=== PATIENT | female | born 1940 | race Caucasian/White ===

== ENCOUNTER 2016-05-29 13:10 | Inpatient (IN) | payer MEDICARE, OTHER ==
[~2016-05-29] VITALS: Ht 160 cm; Wt 104.4 kg
[~2016-05-29 13:10] MED LIST: AMLO5TAB2 PO; ASCO-294 PO; ASPI-973 PO; CHOL10008 PO; CYA1000I IM; DOXA8TAB73 PO; GABA300C PO; HYDR-3797 PO; HYDR-3940 PO; HYDR25TA4 PO; INSU100I13 SUBQ; LATA2.5D6 BOTH_EYES; OXYC5TAB72 PO; PRD5T PO; PRE10 PO; PRED-508 PO; PRIM50TA PO; PROP120C2 PO; TELM80TA PO
[2016-05-29 13:12] VITALS: BP 130/56; PULSE 55; RESP 16; O2SAT 100
[2016-05-29 13:38] LABS: BASOPHILS % (AUTO) 0.4 % (0-3); EOSINOPHILS % (AUTO) 2.3 % (0-5); MONOCYTES % (AUTO) 8.5 % (4-12); Mean Corpuscular Hemoglobin 27.5 pg (27.0-35.0); Mean Corpuscular Volume 84.4 fL (81-100); NEUTROPHILS % (AUTO) 58.9 % (40-74); Platelet Count 167 bil/L (150-400)
[2016-05-29 13:52] VITALS: BP 114/53; PULSE 53; RESP 17; O2SAT 98
[2016-05-29 14:06] LABS: TROPONIN T < 0.010 ug/L (0.0-0.011)
[2016-05-29 14:11] LABS: Magnesium 2.1 mg/dL (1.6-2.6)
--- NOTE | 2016-05-29 14:17 | ED.REPORT ---
HPI-General Illness Date of Service May 29, 2016 ED Provider: Van Phan DO The patient is a 75 year old female with history of hypertension, diabetes mellitus, renal insufficiency, who was sent to the emergency department from urgent care. She went to have a B12 shot this morning and her blood pressure was found to be low. The patient was sent to urgent care, her blood pressure had improved but was very tearful and upset so she was subsequently sent here. She presents to the emergency department tearful and complaining of generally not feeling well. She complains of chronic neck, arm and shoulder pain. The patient has been crying more over the last month. Her family states that she is feeling hopeless and depressed. The patient dealt with depression many years ago. She has been sleeping well. She denies abdominal pain, vomiting, diarrhea, dysuria, urinary frequency/urgency changes, chest pain or shortness of breath. Nursing Notes Stated Complaint: LOW BLOOD PRESSURE Chief Complaint: General Complaint Nursing Notes Reviewed: Yes Allergies: Coded Allergies: amoxicillin (Verified Allergy, Severe, Hives,HEADACHE, 05/29/16) citalopram (Verified Allergy, Severe, Hallucinations, 05/29/16) nifedipine (Verified Allergy, Severe, rash, 05/29/16) lisinopril (Verified Adverse Reaction, Severe, cough, 05/29/16) pioglitazone (Verified Adverse Reaction, Severe, leg swelling,WEIGHT GAIN , 05/29/16) pravastatin (Verified Adverse Reaction, Severe, myalgias, 05/29/16) saxagliptin (Verified Adverse Reaction, Severe, Headache, 05/29/16) simvastatin (Verified Adverse Reaction, Severe, weakness, 05/29/16) Scheduled Amlodipine (Amlodipine) 2.5 Mg Tablet 2.5 MG PO DAILY Antiox#10/Om3/Dha/Epa/Lut/Zeax (I-Caps with Lutein-Maybell 3 Sfg) 1 Each Capsule 1 EACH PO DAILY Aspirin (Aspirin) 81 Mg Tablet 81 MG PO DAILY Chlorthalidone (Chlorthalidone) 25 Mg Tablet 25 MG PO DAILY Cholecalciferol (Vitamin D3) (Vitamin D3) 1,000 Unit Tab.chew 2,000 UNIT PO DAILY Cranberry Fruit (Cranberry) 400 Mg Tablet 400 MG PO DAILY Cyanocobalamin (Cyanocobalamin Injection) 1,000 Mcg/1 Ml Vial 1,000 MCG IM Monthly Doxazosin Mesylate (Doxazosin Mesylate) 8 Mg Tablet 8 MG PO BID Hydralazine (Hydralazine) 50 Mg Tablet 50 MG PO BID Insulin Glargine (Lantus U100 Solostar Insulin Pen) 100 Unit/1 Ml Insuln.pen 40 UNITS SUBQ HS Latanoprost (Latanoprost) 2.5 Ml Drops 1 GTT BOTH_EYES HS Primidone (Primidone) 250 Mg Tablet 250 MG PO BID Propranolol ER (Propranolol ER) 120 Mg Cap.sa.24h 120 MG PO BID Telmisartan (Micardis) 80 Mg Tablet 80 MG PO DAILY General Time Seen by MD: 14:09 Chief Complaint Other (low blood pressure) Hx Obtained From: Patient, Other family... Arrived By: Walk-in Sudden in Onset?: No Onset Occurred: More than a week ago... Symptom Duration: Since onset Location: : Arm left: Arm right: Neck: Shoulder left: Shoulder right Quality: Same as prior, Painful Severity: Current: Mild Severity: Maximum: Moderate Recent Healthcare: No recent hospitalization, Recent doctor visit Similar Sx Previous: Yes Past Medical History Past Medical History Pernicious anemia Reports: Diabetes mellitus, Hypertension Reports: Glaucoma, Kidney disease, Morbid Obesity, Renal insufficiency Past Surgical History Right knee arthroplasty 11/25/2015 Left rotator cuff repair Right ankle surgery Cholecystectomy Total hysterectomy 30 years ago. Colonoscopy Family History Noncontributory Smoking History Never Smoker Social History Alcohol Use: Denies alcohol use Drug Use: Denies drug use Other Social History: Good social support, , Local resident Ambulatory Status Independent Review of Systems +hypotension, crying Full Review of Systems Constitutional: Reports: Fatigue, Malaise Musculoskeletal: Reports: Extremity pain, Joint pain, Neck pain Psychiatric: Reports: Depression, Denies: Insomnia Complete sys rev & neg: except as marked. Physical Exam Vital Signs Vital Signs Date Time Temp Pulse Resp B/P Pulse Ox O2 Delivery O2 Flow Rate FiO2 05/29/16 16:39 77 12 147/82 98 Room Air 05/29/16 13:52 53 17 114/53 98 Room Air 05/29/16 13:12 35.6 55 16 130/56 100 Room Air Initial VS: Reviewed Head / Eyes: Atraumatic, Normocephalic, PERRL Neck: Supple, Non-tender, Full range of motion Respiratory: Breath sounds normal, Clear to auscultation, No respiratory distress Cardiovascular: Regular rate & rhythm, Heart sounds normal, Intact distal pulses Abdomen / GI: Soft, Non-tender, No guarding, No rebound, No distention Extremities: Vascular intact, Neuro intact, No swelling, No tenderness Skin: Warm, Dry, No cyanosis Neurologic: Alert, Oriented, Nonfocal Psychiatric: Mood/affect normal, Behavior normal, Normal thought content General/Constitutional: Awake, Alert Behavior: Positive: Tearful Appearance / Presentation: Positive: Obese ENT: Airway patent Mouth: Positive: Mucous membranes dry Interpretation & Diagnostics Lab Results Interpretation Result Diagram: 05/29/16 1332 05/29/16 1332 Test 05/29/16 13:32 05/29/16 16:25 White Blood Count 5.2th/mm3 (3.8-10.1) Red Blood Count 4.18mil/mm3 (3.90-5.20) Hemoglobin 11.5g/dL (12.0-15.6) Hematocrit 35.3% (35.0-46.0) Mean Corpuscular Volume 84.4fL (81-100) Mean Corpuscular Hemoglobin 27.5pg (27.0-35.0) Mean Corpuscular Hemoglobin Concent 32.6% (32.0-37.0) Red Cell Distribution Width 14.8% (12.3-15.4) Platelet Count 167bil/L (150-400) Neutrophils (%) (Auto) 58.9% (40-74) Lymphocytes (%) (Auto) 29.7% (14-46) Monocytes (%) (Auto) 8.5% (4-12) Eosinophils (%) (Auto) 2.3% (0-5) Basophils (%) (Auto) 0.4% (0-3) Sodium Level 139mEq/L (134-144) Potassium Level 2.9mEq/L (3.5-5.2) Chloride Level 94mEq/L (97-108) Carbon Dioxide Level 26mmol/L (18-29) Blood Urea Nitrogen 44mg/dL (8-27) Creatinine 1.83mg/dL (0.57-1.00) Estimat Glomerular Filtration Rate 38mL/min (>59) Glucose Level 144mg/dL (60-99) Calcium Level 10.2mg/dL (8.5-10.1) Magnesium Level 2.1mg/dL (1.6-2.6) Total Bilirubin 0.3mg/dL (0.0-1.2) Aspartate Amino Transf (AST/SGOT) 70U/L (0-50) Alanine Aminotransferase (ALT/SGPT) 60U/L (0-32) Alkaline Phosphatase 243U/L (25-165) Troponin T < 0.010ug/L (0.0-0.011) Total Protein 7.4g/dL (6.4-8.4) Albumin 4.2g/dL (3.4-5.0) Urine Color Yellow (YELLOW) Urine Appearance Clear (CLEAR,HAZY) Urine pH 6.0 (5.0-8.0) Urine Specific [place] <1.005 (1.003-1.035) Urine Protein Negativemg/dL (NEG,TRACE) Urine Glucose (UA) Negativemg/dL (NEGATIVE) Urine Ketones Negativemg/dL (NEGATIVE) Urine Occult Blood Negative (NEGATIVE) Urine Nitrite Negative (NEGATIVE) Urine Bilirubin Negative (NEGATIVE) Urine Urobilinogen Normalmg/dL (NORMAL) Urine Leukocyte Esterase Small (NEGATIVE) Urine RBC 0-2/hpf (0-2) Urine WBC 6-10/hpf (0-5) Urine Epithelial Cells Moderate/hpf (NONE-MOD) Urine Crystals None seen (NONE SEEN) Urine Bacteria Moderate/hpf (NONE-FEW) Urine Hyaline Casts 5/20/lpf (NONE) Urine Granular Casts None seen (NONE SEEN) Urine Waxy Casts None seen (NONE SEEN) Urine Red Blood Cell Casts None seen (NONE SEEN) Urine White Blood Cell Casts None seen (NONE SEEN) Urine Mucus None seen (None Seen) Urine Trichomonas None seen (NONE SEEN) Urine Yeast None (NONE SEEN) Urinalysis Comment None Urine Culture Reflexed Indicated ECG Interpretation ECG Interpretation: Sinus rhythm Abnormal R wave progression Time: 14:01 Interpreted by: ED physician Re-Eval/Medical Decision Med Decision/Clinical Course Hypotension this morning at the doctor's office and acute kidney injury. Creatinine seems to have triple from baseline. Patient will be admitted. Source of Hx: Old records, Family Time of Eval: 15:40 Re-Evaluation/Progress Note: Rechecked the patient. Discussed labs, diagnosis, and plan for admission. All questions were addressed. Consultation : Referral / Consult Name: Kishore Kearney MD Consulted With: Hospitalist Call Returned at: 16:07 [place]: Will see patient, Agrees with eval, Agrees with plan, Accepts admit Counseled Regarding: Diagnosis, Lab results, Need for admission Discharge & Departure Primary Impression: Dehydration Additional Impression: Acute kidney injury Disposition: ADMITTED TO HOSPITAL Discharge Condition All VS Reviewed: Yes Condition: Stable Referrals: Samantha Henderson (PCP) Scribe Attestation Portions of this note were transcribed by Phoebe Rodriguez. I, Dr. Phan personally performed the history, physical exam and medical decision-making; I reviewed and confirmed the accuracy of the information in the transcribed note. Signed by: Joao Pride, 05/29/2016 at 1615. copies to: Samantha Henderson Timothy S DO May 29, 2016 14:17 Phoebe Rodriguez May 29, 2016 14:26
[2016-05-29] MEDS ORDERED: 0.9% Sodium Chloride 1,000 ML IV ONE (14:30)
[2016-05-29] MEDS ORDERED: Potassium Chloride 20 mEq SR Tablet PO ONE (14:30)
[2016-05-29] MEDS ORDERED: AMLO2.5T PO (16:35)
[2016-05-29] MEDS ORDERED: HYG25 PO (16:38)
[2016-05-29] MEDS ORDERED: ANTI1CAP2 PO (16:38)
[2016-05-29] MEDS ORDERED: PRIM250T PO (16:38)
[2016-05-29] MEDS ORDERED: CRAN400T4 PO (16:38)
[2016-05-29 16:39] VITALS: BP 147/82; PULSE 77; RESP 12; O2SAT 98
[2016-05-29 17:01] LABS: APPEARANCE,URINE CLEAR (CLEAR,HAZY); COLOR,URINE YELLOW (YELLOW)
[2016-05-29 17:02] LABS: OCCULT BLOOD,URINE NEGATIVE (NEGATIVE); UROBILINOGEN,URINE NORMAL (NORMAL)
[2016-05-29 17:17] VITALS: BP 148/60; PULSE 52; RESP 20; O2SAT 99
[2016-05-29 17:37] VITALS: PULSE 53
[2016-05-29] MEDS: D5 0.45% NaCl + KCl 20 mEq/L 1,000 ML IV SCH (17:55)
[2016-05-29 20:20] VITALS: BP 128/72; PULSE 58; RESP 20; O2SAT 98
--- NOTE | 2016-05-29 20:58 | DRSVH ---
PROCEDURE: X-RAY CHEST ONE VIEW, PORTABLE ([id number]) INDICATIONS: fatigue TECHNIQUE: One view of the chest was acquired. COMPARISON: [facility], CR, XR CHEST 2VW, 11/27/2015, 12:49. FINDINGS: Surgical changes and devices: None. Lungs and pleura: No pleural effusions or pneumothorax. Lungs are clear. Mediastinum: Mediastinal contours appear normal. Heart size is normal. Bones and chest wall: No suspicious bony lesions. Overlying soft tissues appear unremarkable. IMPRESSION: No acute cardiopulmonary disease. Dictated by: Segundo Ching M.D. on 05/29/2016 at 20:52 Approved by: Segundo Ching M.D. on 05/29/2016 at 20:56
[2016-05-29 21:04] LABS: TROPONIN T 0.01 ug/L (0.0-0.011)
[2016-05-29] MEDS: cefTRIAXone Inj 1,000 MG in Dextrose 5% Minibag Plus 50 ML IV SCH (21:59)
[2016-05-29] MEDS: Insulin GLARgine 100 Unit/mL Syringe SUBQ SCH (22:01)
[2016-05-30] VITALS (7 sets, daily range): BP systolic 107–127; BP diastolic 56–74; PULSE 52–66; RESP 18–20; O2SAT 97–98
[2016-05-30] MEDS ORDERED: Potassium Chloride Inj 20 MEQ in Dextrose 5% 250 ML IV ONE (00:15)
--- NOTE | 2016-05-30 00:23 | PCM.HPMED ---
Subjective Date of Service May 29, 2016 Primary Provider: Admitting Physician: Kishore Kearney MD Primary Care Physician: Samantha Henderson Attending Physician: Kishore Kearney MD History of Present Illness: cc: low BP HISTORY was OBTAINED FROM PATIENT / [employer] NOTES History of present illness 75-year-old female, noted to have low blood pressures at primary care office 58/ 40, noted to have low blood pressures at urgent care 98/48 then finally sent to the emergency department after 1L NS. She had been receiving vitamin B12 injections at primary care office. Family indicates that she has been depressed for at least 2 months and staying in her room. In the ER she has been crying throughout. she indicated possibly lightheadness today. No abdominal pains diarrhea no shortness of breath. patient indicates tolerating diet, no vomiting. poor appetite. She feels sad when crying, crying is not involuntary motor reaction. new diffuse upper extremity weakness. no changes in medications. wt loss 20lb within this year. In the ER heart rate 53, 114/53 mm, normal saline and potassium chloride 40 last hospitalized 1 year ago. Review of Systems - none of the following - F/C/sick contact / [facility] / sob / cough / cp / acid reflux / n/v/diarrhea / bleeding/bruising / leg swelling / change in voiding / yeast infections / rash ambulates neck pain is chronic left ear ache feels better w/ pressure FAMILY HX sister colon cancer SOCIAL HX never smoker no MEDICATIONS Scheduled Amlodipine (Amlodipine) 5 Mg Tablet 5 MG PO DAILY Ascorbate Calcium (Vitamin C) 500 Mg Tablet 500 MG PO QPM Aspirin (Aspirin) 81 Mg Tablet 81 MG PO DAILY Cholecalciferol (Vitamin D3) (Vitamin D3) 1,000 Unit Tab.chew 2,000 UNIT PO DAILY Cyanocobalamin (Cyanocobalamin Injection) 1,000 Mcg/1 Ml Vial 1,000 MCG IM Monthly Doxazosin Mesylate (Doxazosin Mesylate) 8 Mg Tablet 8 MG PO BID Gabapentin (Neurontin) 300 Mg Capsule 300 MG PO BID Hydralazine (Hydralazine) 50 Mg Tablet 50 MG PO BID Hydralazine (Hydralazine) 50 Mg Tablet 100 MG PO BID Hydrochlorothiazide (Hydrochlorothiazide) 25 Mg Tablet 25 MG PO DAILY Insulin Glargine (Lantus U100 Solostar Insulin Pen) 100 Unit/1 Ml Insuln.pen 40 UNITS SUBQ HS Latanoprost (Latanoprost) 2.5 Ml Drops 1 GTT BOTH_EYES HS Prednisone (Deltasone) 20 Mg Tablet 20 MG PO HS Prednisone (PredniSONE) 10 Mg Tablet 10 MG PO DAILY Prednisone (PredniSONE) 5 Mg Tab 5 MG PO DAILY Primidone (Primidone) 50 Mg Tablet 200 MG PO BID Propranolol ER (Propranolol ER) 120 Mg Cap.sa.24h 240 MG PO DAILY Telmisartan (Micardis) 80 Mg Tablet 80 MG PO DAILY Scheduled PRN Hydroxyzine Pamoate (HydrOXYzine Pamoate) 25 Mg Capsule 25-50 MG PO QID PRN PRN For Nausea oxyCODONE (oxyCODONE) 5 Mg Tablet 5 MG PO Q4H PRN PRN For Pain Past Medical/Surgical HX Chronic neck shoulder pains Pernicious anemia Diabetes mellitus, Hypertension dyslipidemia cataracts, tremor, vertigo, headache Glaucoma, Kidney disease, Morbid Obesity, Renal insufficiency Hemorrhoids, colon polyps, lower GI bleed C. difficile 2015 Past Surgical History Right knee arthroplasty 11/25/2015 Left rotator cuff repair Right ankle surgery Cholecystectomy Total hysterectomy 30 years ago. Colonoscopy Allergies Coded Allergies: amoxicillin (Verified Allergy, Severe, Hives,HEADACHE, 05/29/16) citalopram (Verified Allergy, Severe, Hallucinations, 05/29/16) nifedipine (Verified Allergy, Severe, rash, 05/29/16) lisinopril (Verified Adverse Reaction, Severe, cough, 05/29/16) pioglitazone (Verified Adverse Reaction, Severe, leg swelling,WEIGHT GAIN , 05/29/16) pravastatin (Verified Adverse Reaction, Severe, myalgias, 05/29/16) saxagliptin (Verified Adverse Reaction, Severe, Headache, 05/29/16) simvastatin (Verified Adverse Reaction, Severe, weakness, 05/29/16) PMH Social History Hx Alcohol Use: No Hx Substance Use: No Hx Tobacco Use: No Smoking Status: Never Smoker Exam Vital Signs Vital Sign - Last Date Time Temp Pulse Resp B/P Pulse Ox O2 Delivery O2 Flow Rate FiO2 05/29/16 16:39 77 12 147/82 98 Room Air 05/29/16 13:12 35.6 Lab and Diagnostics Labs Exam on admission NAD A and O x 3 mood affect WNL NC/AT no icterus no injected eyes EOMI PERRL /no pharyngeal lesions/ no oral lesions / hearing intact Supple neck CTAB equal chest rise / no accessory muscle use / speaks in full sentences / no rrw RRR S1 S2 / no mrg / 2+ radial pulses Soft nt nd + BS no hepatosplenomegaly trace hope edema no cyanosis no ecchymosis of lower extremities No rash / no jaundice RUIZ symmetrical facies mildly tender to all limb palpation STUDIES EKG SB 50s UA +jonathan esterase, +WBC + bacteria LFT AST 70 ALT 60 alkaline phosphatase 243 Calcium 10.2 Creatinine 1.83 baseline 0.63 Potassium 2.9 Imaging CXR IMPRESSION: No acute cardiopulmonary disease. Echo 2016 EF 65-70 percent, mild to moderate MR, moderate TR Result Diagram: 05/29/16 1332 05/29/16 1332 Assessment & Plan Active issues and reason for admission Hypotension treating as dehydration by holding home diuretics and UTI w/ hypokalemia/hypercalcemia -- IV fluid/D51/5 NS k20 --hold chlorthalidone micardis, hydralazine, doxazosin amlodipine continue propanolol w/ holding paramenter --pending orthostatics / echo --rocephine, pending UCx, low threshold to dc abx due to C diff hx 2016, probiotic Depression --pending b12 vit d pth ca --consider psychiatry consul transaminitis, likely due to hypotension --monitor JUAN on CKD3 w/ Hypokalemia --ivf diffuse muscle aches --contributory low K, pending CPK ear ache x 1 year, better w/ pressure --unable to find otoscope this evening, f/u outpt and or evaluate by DAY TEAM questionable 20lb weight loss w/i this year but no change in clothes size --pending routine colonoscopy this year, prior hx polyps Chronic, present on admission Chronic neck shoulder pains Pernicious anemia Diabetes mellitus, Hypertension dyslipidemia tremor vertigo, headache Glaucoma, Morbid Obesity, Renal insufficiency colon polyps, lower GI bleed Diet DM lantus DVT prophylaxis heparin Code full Disposition OBS status Assessment and plan were discussed with patient family. Kishore Kearney MD May 29, 2016 17:10
[2016-05-30] MEDS: Heparin 5,000 Unit/mL Inj SUBQ SCH ×3 (02:02→17:25)
--- NOTE | 2016-05-30 05:09 | NUR ---
Shalonda Wero assumed care at 02:00. pt is A&Ox3, [place] as hearing aides were already taken out. pt receiving K Wero, verbalized arm was hurting, RN flushed line with 10cc NS, able to draw back and see good blood return. pt denied having any discomfort at the site when flushed with NS. K rider rate was decreased, warm pack&towel applied to left arm, elevated on a pillow. pt verbalized her arm "feels better" after the nursing interventions. care is on-going. call light placed within reach, hourly rounding in effect.
[2016-05-30 07:31] LABS: Magnesium 1.9 mg/dL (1.6-2.6)
[2016-05-30] MEDS: D5 0.45% NaCl + KCl 20 mEq/L 1,000 ML IV SCH ×2 (09:21→21:28)
[2016-05-30] MEDS: Insulin GLARgine 100 Unit/mL Syringe SUBQ SCH ×2 (09:22→21:29)
--- NOTE | 2016-05-30 13:52 | NUR ---
NUTRITION ASSESSMENT: ASSESS:75 YO female noted to have low blood pressure at primary care office 58/40, noted to have low blood pressures at urgent care 98/48 then finally sent to the emergency department after 1L NS. She had been receiving vitamin B12 injections at primary care office. Family indicates that she has been depressed for at least 2 months and staying in her room. She is admitted with hypotension, treating as dehydration by holding home diuretics, and UTI w/ hypokalemia/hypercalcemia. She reports significant depression with weight loss. Per admission history, she has lost 15 kg x 6 months = 12.49% = moderate malnutrition. PMHx:Chronic neck / shoulder pain, pernicious anemia, type 2 diabetes, HTN, dyslipidemia, cataracts, tremor, vertigo, headache, glaucoma, kidney disease, class III obesity, hemorrhoids, colon polyps, lower GI bleed. DIET:Heart healthy consistent carb. PO intake 100% trays. LABS: K+ 3.2, BUN 34, Cr 1.19, Glu 116, A1c 6.2, ALT 43, Alk Phos 208, Alb 3.5. MEDICATIONS: Reviewed. Insulin. NUTRITION FOCUSED PHYSICAL ASSESSMENT: GI symptoms / stool: No BM reported.Jaya: 18. Skin Integrity: No issues reported. ANTHROPOMETRICS: Current Wt: 104.4 kgBMI: 40.0 kg/m2. IBW: 52.3 kg (199.7% IBW) ESTIMATED NEEDS (CLASS III OBESITY, MODERATE MALNUTRITION): Calories: 1307 - 1568 kcal (25 - 30 kcal / kg IBW) Protein: 94 - 105 g protein (1.8 - 2.0 g / kg IBW) Fluid: 2610 mL (approx. 25 mL / kg BW) NUTRITION DIAGNOSIS: 1)Moderate malnutrition likely related to depression, loss of appetite per family report, as evidenced by 12.49% weight loss x 6 months. INTERVENTION: 1) Will add supplements to trays. 2) Strongly recommend outpatient mental health counseling, with possible addition of appetite stimulant to medication profile. MONITOR/EVALUATE: Diet / supplement tolerance, PO intake, labs, GI/nutrition status. Follow up per moderate nutrition risk guidelines.
--- NOTE | 2016-05-30 16:34 | NUR ---
[facility] signed
--- NOTE | 2016-05-30 18:02 | DRSVH ---
[facility] [address] [place] [address] Echocardiogram Report Name: ALVARADO HOANG Study Date: 05/30/2016 Height: 63 in Hospital Exam Location: [facility] Weight: 230 lb Gender: Female BSA: 2.1 m2 : 1940 Age: 75 yrs BP: 125/67 mmHg Reason For Study: SYNCOPE Ordering Physician: HOSPITALIST [facility] Performed By: Anne Vidales Referring Physician: Samantha Henderson Interpretation Summary Left ventricular systolic function is normal without focal wall motion abnormalities with the ejection fraction visually estimated to be 55-60% and appears slightly less vigorous compared to the previous study. Left ventricular wall thickness is borderline increased with a probable relaxation abnormality of the left ventricle, consistent with normal filling pressures which is unchanged compared to the previous study. The right ventricle is normal in size and function and appears unchanged compared to the previous study. The right ventricular systolic pressure is estimated at 26 mmHg assuming a right atrial pressure of 3 mm Hg, and is significantly lower compared to the previous study. The left atrium is mildly dilated and the right atrium is borderline dilated. Both atria have mildly increased in size since the prior echo exam. There is mild-moderate mitral regurgitation that is unchanged compared to the previous study. There is no other significant valvular heart disease. The patient was in sinus bradycardia with heart rates between 50-60 bpm during the exam which is slightly slower compared to the previous study. Procedure: A two-dimensional transthoracic echocardiogram with color flow and Doppler was performed. Image quality is fair. No true parasternal window. Comparison is made with the echocardiogram of 11-28-2015. The patient was in sinus bradycardia with heart rates between 50-60 bpm during the exam. This is slightly slower compared to the previous study. Left Ventricle: The left ventricle is normal in size. Left ventricular wall thickness is borderline increased. Left ventricular systolic function is normal without focal wall motion abnormalities. The ejection fraction is estimated to be 55-60%. This is appears slightly less vigorous compared to the previous study. Spectral Doppler of the mitral valve is reversed, with an E/A wave ratio < 1.0. Assessment of diastolic parameters indicates a relaxation abnormality of the left ventricle, consistent with normal filling pressures. This is unchanged compared to the previous study. Right Ventricle: The right ventricle is normal in size and function. This is unchanged compared to the previous study. Atria: The left atrium is mildly dilated. Both atria have mildly increased in size since the prior echo exam. The right atrium is borderline dilated. There is no Doppler evidence for an atrial septal defect. Mitral Valve: There is mild mitral annular calcification. There is mild to moderate mitral regurgitation. This is unchanged compared to the previous study. Aortic Valve: The aortic valve is not well visualized. The aortic valve is grossly normal. The aortic valve is slightly calcified. The aortic valve opens well. No aortic regurgitation is present. Tricuspid Valve: The tricuspid valve leaflets are thin and pliable. There is a trace or physiologic amount of tricuspid regurgitation. The right ventricular systolic pressure is estimated at 26 mmHg assuming a right atrial pressure of 3 mm Hg. This is significantly lower compared to the previous study. Pulmonic Valve: The pulmonic valve is not well visualized. There is no other significant valvular heart disease. Great Vessels: The aortic root is normal size. The ascending aorta could not be visualized. The pulmonary is not well visualized. The IVC is of normal diameter and collapses greater than 50% with a sniff. This suggests a low right atrial pressure of 3 mm Hg. Pericardium/ Pleura There is no pericardial effusion. There is no pleural effusion. MMode/2D Measurements & Calculations LVIDd: 4.2 cm LA dimension: 4.0 cm RA long axis LVOT diam: 2.0 cm LVIDs: 2.9 cm AoV Opening FS: 31.4 % LA A2 area: 25.5 cm RA area IVSd: 1.3 cm LA A4 area: 23.1 cm Ao root diam LVPWd: 0.87 cm LA length (vol) : 20.7 cm RA vol Ao Arch Diam (Prox LA vol: 80.6 ml : 63.6 ml Trans): 2.2 cm LA vol index RA : 31.0 mm/ RVDd major IVC diam: 1.6 cm : 6.3 cm LV steward. diameter/BSA LV sys. diameter/BSA RVD2 (mid) (cm/m^2): 2.0 (cm/m^2): 1.4 : 2.8 cm Doppler Measurements & Calculations Ao V2 max MV E max sukh MV E/A: 0.75 TR max sukh : 181.2 cm/sec : 76.3 cm/sec Pulm A Revs Dur : 241.4 cm/sec Ao max PG MV A max sukh TR max P.3 mmHg : 13.1 mmHg : 102.3 cm/sec MV A dur: 0.16 sec PA V2 max Ao mean PG MV P1/2t : 92.6 cm/sec : 111.0 msec PA mean P.9 mmHg LVOT Max Sukh MR ERO: 0.11 cm2 PA Accel Time : 121.5 cm/sec : 0.16 sec BRIDGETTE(I,D): 2.2 cm sev ratio MV dec time MV P1/2t max sukh Ao V2 mean LV V1 max PG : 0.38 sec : 122.0 cm/sec MVA(P1/2t) Ao V2 VTI: 41.5 cm LV V1 VTI: 29.4 cm : 2.0 cm2 BRIDGETTE(V,D): 2.1 cm2 MR flow rate PA V2 mean BRIDGETTE indexed to BSA Pulm A Revs Dur - MV : 59.7 cm3/sec : 65.3 cm/sec (cm^2/m^2): 1.1 A Dur: -0.01 msec MR PISA radius Reading Physician:06:01 PM
--- NOTE | 2016-05-30 18:57 | NUR ---
Evaluation completed. Please go to "Notes" then click on "Assessments and Notes" (bottom left corner of screen). Then select appropriate discipline tab on top of screen.
[2016-05-30] MEDS: cefTRIAXone Inj 1,000 MG in Dextrose 5% Minibag Plus 50 ML IV SCH (20:19)
--- NOTE | 2016-05-30 23:25 | PCM.PNMED ---
Subjective Date of Service May 30, 2016 Subjective Patient has no new complaints and is starting to feel a little bit better. Has some non-specific complaints. He is also upset that she has what appears to be another urinary tract infection. Exam Vital Signs Vital Sign - Last Date Time Temp Pulse Resp B/P Pulse Ox O2 Delivery O2 Flow Rate FiO2 05/30/16 21:22 36.8 56 18 123/68 98 Room Air Intake and Output 05/29/16 05/29/16 05/30/16 Cumulative From/Thru 15:00 23:00 07:00 05/29/16 13:12 - 05/30/16 05:52 Intake Total 987 ml 987 ml Output Total 500 ml 500 ml Balance -500 ml 987 ml 487 ml IV Total 987 ml 987 ml Output Urine Total 500 ml 500 ml # Voids 1 1 Exam General: Patient is sitting on the side of the bed in no apparent distress. HEENT: Head is atraumatic and normocephalic. Eyes: Pupils are equally round and reactive to light and accommodation. Extraocular muscles are intact. Sclera are white, anicteric. Subconjunctival mucosa is pink. Ears and nose are unremarkable. Oropharynx: There is no mucosal lesions, there is no thrush, there is no pharyngitis. Neck: Is supple, there are no nodes, or masses or tenderness. Chest: Is significant for a few basilar rales. There are no rhonchi or rubs. Heart: Rate, rhythm is regular. There is no murmur, rub or gallop. Abdomen: Good bowel sounds are present. Abdomen is soft, nontender, no organomegaly or masses were appreciated. Extremities: Are symmetrical and well perfused. There is no edema, there is no cellulitis, no rash. Neurologic: There are no focal neurological deficits. Cranial nerves II through XII are intact. There are no sensory or motor deficits. Psychiatric: Patients mood is calm and shows no sign of agitation. Genital: Deferred Rectal: Deferred Lab and Diagnostics Result Diagram: 05/29/16 1332 05/30/16 0615 Microbiology Name: ALVARADO HOANG Age/Sex: 75/F Attend Dr: Jackie Kearney MD Acct: [id number] Unit: [id number] Status: ADM Marlo Location: [facility] [place] 3024-1 Re05/29/16 Disch: Specimen: [id number] Collected: 05/29/16 Status: COMP Req#: [id number] Received: 05/29/16 Source: URINE CC Sp Desc : STEPHEN Zaidi Dr: Van Phan DO Ordered: URINE CULT Procedure Result Verified Site Microbiology SVETLANA CULT URINE Final 05/30/16-0856 Organism 1 MIXED UROGENITAL KENIA U COLONY COUNT/QUANTITY 25-50,000 CFU/ml X-Rays, CTs and MRIs PROCEDURE: X-RAY CHEST ONE VIEW, PORTABLE ([id number]) INDICATIONS: fatigue TECHNIQUE: One view of the chest was acquired. COMPARISON: Merged With [facility], CR, XR CHEST 2VW, 11/27/2015, 12:49. FINDINGS: Surgical changes and devices: None. Lungs and pleura: No pleural effusions or pneumothorax. Lungs are clear. Mediastinum: Mediastinal contours appear normal. Heart size is normal. Bones and chest wall: No suspicious bony lesions. Overlying soft tissues appear unremarkable. IMPRESSION: No acute cardiopulmonary disease. Dictated by: Segundo Ching M.D. on 05/29/2016 at 20:52 Approved by: Segundo Ching M.D. on 05/29/2016 at 20:56 Cardiac Echo Impressions Echocardiogram Report Name: ALVARADO HOANG Study Date: 05/30/2016 Height: 63 in Hospital Exam Location: [facility] Weight: 230 lb Gender: Female BSA: 2.1 m2 : 1940 Age: 75 yrs BP: 125/67 mmHg Reason For Study: SYNCOPE Ordering Physician: HOSPITALIST [facility] Performed By: Anne Vidales Referring Physician: Samantha Henderson Interpretation Summary Left ventricular systolic function is normal without focal wall motion abnormalities with the ejection fraction visually estimated to be 55-60% and appears slightly less vigorous compared to the previous study. Left ventricular wall thickness is borderline increased with a probable relaxation abnormality of the left ventricle, consistent with normal filling pressures which is unchanged compared to the previous study. The right ventricle is normal in size and function and appears unchanged compared to the previous study. The right ventricular systolic pressure is estimated at 26 mmHg assuming a right atrial pressure of 3 mm Hg, and is significantly lower compared to the previous study. The left atrium is mildly dilated and the right atrium is borderline dilated. Both atria have mildly increased in size since the prior echo exam. There is mild-moderate mitral regurgitation that is unchanged compared to the previous study. There is no other significant valvular heart disease. The patient was in sinus bradycardia with heart rates between 50-60 bpm during the exam which is slightly slower compared to the previous study. Assessment & Plan The patient is a 75 year old female with history of hypertension, diabetes mellitus, renal insufficiency, who was sent to the emergency department from urgent care. She went to have a B12 shot this morning and her blood pressure was found to be low. The patient was sent to urgent care, her blood pressure had improved but was very tearful and upset so she was subsequently sent here. She presents to the emergency department tearful and complaining of generally not feeling well. She complains of chronic neck, arm and shoulder pain. The patient has been crying more over the last month. Her family states that she is feeling hopeless and depressed. The patient dealt with depression many years ago. She has been sleeping well. She denies abdominal pain, vomiting, diarrhea, dysuria, urinary frequency/urgency changes, chest pain or shortness of breath. Hypotension on admission and ongoing -- treating as dehydration by holding home diuretics and UTI w/ hypokalemia/ hypercalcemia -- IV fluid/D51/5 NS k20 --hold chlorthalidone micardis, hydralazine, doxazosin amlodipine continue propanolol w/ holding paramenter --pending orthostatics / echo --rocephine, pending UCx, low threshold to dc abx due to C diff hx 2016, probiotic Depression --pending b12 vit d pth ca --consider psychiatry consult Transaminitis, sent on admission and ongoing --likely due to hypotension -- We will continue to monitor JUAN on CKD3 w/ Hypokalemia -- We will continue IV fluids Diffuse muscle aches --contributory low K, CPK unremarkable Ear ache x 1 year, better w/ pressure present at the time of admission. -- Patient did not complain to me about it Questionable 20lb weight loss w/i this year but no change in clothes size --pending routine colonoscopy this year, prior hx polyps Chronic, present on admission Chronic neck shoulder pains Pernicious anemia Diabetes mellitus, Hypertension dyslipidemia tremor vertigo, headache Glaucoma, Morbid Obesity, Renal insufficiency colon polyps, lower GI bleed Diet DM lantus DVT prophylaxis heparin Code full Disposition OBS status Pain Evaluation: Adequate Pain Control VTE Mechanical Devices: Intermittant Pneumatic CD Resuscitation Status: CPR: Attempt Resuscitation Devyn De Souza MD May 30, 2016 23:25
[2016-05-31] VITALS (7 sets, daily range): BP systolic 125–164; BP diastolic 61–76; PULSE 51–61; RESP 18–20; O2SAT 96–99
[2016-05-31] MEDS: Heparin 5,000 Unit/mL Inj SUBQ SCH ×4 (00:53→23:28)
--- NOTE | 2016-05-31 03:47 | NUR ---
NOC shift note Patient ambulated once in hallway, about 100 feet. Steady with walker and [id number]. Patient had two loose bowel movements. Reported chronic neck/back pain- heating pad effective. Used own CPAP. Bed alarm on for safety, as patient was quick to try and get up after pushing call light. Pleasant and cooperative with care. Intentional rounding in place.
--- NOTE | 2016-05-31 06:02 | NUR ---
Heart rate Patient's heart rate was in the 50's, dropping to 44-45 while asleep. Two doses of scheduled Propanolol were not given based on the parameter of having heart rate less than 70. Patient has denied dizziness, lightheadedness. Patient updated on rationale, agreeable. All other vital signs within normal.
[2016-05-31 07:09] LABS: Free Thyroxine Index 2.3 (1.2-4.9); T3 Uptake 32 % (24-39); Thyroxine (T4) 7.3 ug/dL (4.5-12.0)
[2016-05-31 08:06] LABS: BASOPHILS % (AUTO) 0.3 % (0-3); EOSINOPHILS % (AUTO) 3.6 % (0-5); MONOCYTES % (AUTO) 8.1 % (4-12); Mean Corpuscular Hemoglobin 27.3 pg (27.0-35.0); Mean Corpuscular Volume 85.3 fL (81-100); NEUTROPHILS % (AUTO) 40.8 % (40-74); Platelet Count 120 bil/L (150-400)
[2016-05-31 09:03] LABS: Magnesium 1.7 mg/dL (1.6-2.6); Phosphorus 2.8 mg/dL (2.5-4.9)
[2016-05-31] MEDS: Pantoprazole 40 mg ER24 Tablet PO SCH (09:15)
[2016-05-31] MEDS: Insulin GLARgine 100 Unit/mL Syringe SUBQ SCH ×2 (09:16→21:03)
[2016-05-31] MEDS: D5 0.45% NaCl + KCl 20 mEq/L 1,000 ML IV SCH ×2 (10:00→23:28)
[2016-05-31] MEDS ORDERED: Magnesium Sulf 4 Gm/100 mL H2O 4 GM in IV Premix 1 EACH IV ONE (11:25)
[2016-05-31] MEDS: Potassium Chloride 20 mEq SR Tablet PO SCH ×2 (11:54→21:01)
--- NOTE | 2016-05-31 16:47 | NUR ---
Social Work Note: Initial Assessment Data& Assessment: EMR reviewed. SW met with pt at bedside to discuss discharge planning, SW role explained. Beatriz Mireles is a 75 year old female admitted on 05/29/2016 for JUAN and dehydration. Pt has Medicare and for Life Supplement. Pt sees Dr. Scooter Thacker MD for primary care. Pt lives in [place] with her spouse and is independent at baseline. Pt uses a cane for ambulation assistance and drives. Pt has had [facility] in the past and has never been to SNF. Pt does not have LTC insurance or VA service connection. Pt to transport her home when medically ready. Pt provided with DPOA/Advance Directive paperwork to complete when possible. PT has cleared pt to go home with outpt PT. Pt denies any other needs. No other discharge needs identified at this time. Plan: Anticipated discharge home via POV when medically ready. PT has cleared pt to go home with outpt PT. Pt denies any other needs. No other discharge needs identified at this time. AISSATOU Lopez Addendum: 05/31/16 at 1650 by ADAM BUI Amended: Links added.
[2016-05-31] MEDS: cefTRIAXone Inj 1,000 MG in Dextrose 5% Minibag Plus 50 ML IV SCH (21:02)
--- NOTE | 2016-06-01 00:18 | PCM.PNMED ---
Subjective Date of Service Jun 01, 2016 Subjective Patient states that she did not sleep well last night and is very tired today. She has no other new specific complaints. Exam Vital Signs Vital Sign - Last Date Time Temp Pulse Resp B/P Pulse Ox O2 Delivery O2 Flow Rate FiO2 05/31/16 21:49 36.7 56 20 162/76 96 Room Air Intake and Output 05/31/16 05/31/16 06/01/16 Cumulative From/Thru 15:00 23:00 07:00 05/29/16 13:12 - 05/31/16 18:29 Intake Total 318 ml 4035 ml Output Total 1200 ml Balance 318 ml 2835 ml Intake Oral 1808 ml IV Total 318 ml 2227 ml Output Urine Total 1200 ml # Voids 7 # Bowel Movements 2 Exam General: Patient appears somnolent laying in bed under the covers with the lights off. She is in no apparent distress. HEENT: Head is atraumatic and normocephalic. Eyes: Pupils are equally round and reactive to light and accommodation. Extraocular muscles are intact. Sclera are white, anicteric. Subconjunctival mucosa is pink. Ears and nose are unremarkable. Oropharynx: There is no mucosal lesions, there is no thrush, there is no pharyngitis. Neck: Is supple, there are no nodes, or masses or tenderness. Chest: Is significant for a few basilar rales. There are no rhonchi or rubs. Heart: Rate, rhythm is regular. There is no murmur, rub or gallop. Abdomen: Good bowel sounds are present. Abdomen is soft, nontender, no organomegaly or masses were appreciated. Extremities: Are symmetrical and well perfused. There is no edema, there is no cellulitis, no rash. Neurologic: There are no focal neurological deficits. Cranial nerves II through XII are intact. There are no sensory or motor deficits. Psychiatric: Patients mood is calm and shows no sign of agitation. Genital: Deferred Rectal: Deferred Lab and Diagnostics Result Diagram: 05/31/16 0723 05/31/16 0723 Microbiology Name: ALVARADO HOANG Moira Age/Sex: 75/F Attend Dr: Jackie Kearney MD Acct: [id number] Unit: [id number] Status: ADM Marlo Location: [facility] [place] 3024-1 Re05/29/16 Disch: Specimen: [id number] Collected: 05/29/16 Status: COMP Req#: [id number] Received: 05/29/16 Source: URINE CC Sp Desc : STEPHEN Zaidi Dr: Van Phan DO Ordered: URINE CULT Procedure Result Verified Site Microbiology SVETLANA CULT URINE Final 05/30/16-0856 Organism 1 MIXED UROGENITAL KENIA U COLONY COUNT/QUANTITY 25-50,000 CFU/ml X-Rays, CTs and MRIs PROCEDURE: X-RAY CHEST ONE VIEW, PORTABLE ([id number]) INDICATIONS: fatigue TECHNIQUE: One view of the chest was acquired. COMPARISON: [facility], CR, XR CHEST 2VW, 11/27/2015, 12:49. FINDINGS: Surgical changes and devices: None. Lungs and pleura: No pleural effusions or pneumothorax. Lungs are clear. Mediastinum: Mediastinal contours appear normal. Heart size is normal. Bones and chest wall: No suspicious bony lesions. Overlying soft tissues appear unremarkable. IMPRESSION: No acute cardiopulmonary disease. Dictated by: Segundo Ching M.D. on 05/29/2016 at 20:52 Approved by: Segundo Ching M.D. on 05/29/2016 at 20:56 Cardiac Echo Impressions Echocardiogram Report Name: ALVARADO HOANG Study Date: 05/30/2016 Height: 63 in Hospital Exam Location: [facility] Weight: 230 lb Gender: Female BSA: 2.1 m2 : 1940 Age: 75 yrs BP: 125/67 mmHg Reason For Study: SYNCOPE Ordering Physician: HOSPITALIST [facility] Performed By: Anne Vidales Referring Physician: Samantha Henderson Interpretation Summary Left ventricular systolic function is normal without focal wall motion abnormalities with the ejection fraction visually estimated to be 55-60% and appears slightly less vigorous compared to the previous study. Left ventricular wall thickness is borderline increased with a probable relaxation abnormality of the left ventricle, consistent with normal filling pressures which is unchanged compared to the previous study. The right ventricle is normal in size and function and appears unchanged compared to the previous study. The right ventricular systolic pressure is estimated at 26 mmHg assuming a right atrial pressure of 3 mm Hg, and is significantly lower compared to the previous study. The left atrium is mildly dilated and the right atrium is borderline dilated. Both atria have mildly increased in size since the prior echo exam. There is mild-moderate mitral regurgitation that is unchanged compared to the previous study. There is no other significant valvular heart disease. The patient was in sinus bradycardia with heart rates between 50-60 bpm during the exam which is slightly slower compared to the previous study. Assessment & Plan The patient is a 75 year old female with history of hypertension, diabetes mellitus, renal insufficiency, who was sent to the emergency department from urgent care. She went to have a B12 shot this morning and her blood pressure was found to be low. The patient was sent to urgent care, her blood pressure had improved but was very tearful and upset so she was subsequently sent here. She presents to the emergency department tearful and complaining of generally not feeling well. She complains of chronic neck, arm and shoulder pain. The patient has been crying more over the last month. Her family states that she is feeling hopeless and depressed. The patient dealt with depression many years ago. She has been sleeping well. She denies abdominal pain, vomiting, diarrhea, dysuria, urinary frequency/urgency changes, chest pain or shortness of breath. Hypotension on admission and ongoing -- Continue treating as dehydration by holding home diuretics and UTI w/ hypokalemia/hypercalcemia -- Continue IV fluid, however will change /D51/5 NS k20 to normal saline with 20 mEq of KCl at 80 mL per hour -- We will continue to hold chlorthalidone micardis, hydralazine, doxazosin amlodipine continue propanolol w/ holding paramenter -- We will continue Rocephin, for now Depression -- Several tests are pending, including b12, vit d, pth, ca -- If no improvement consider psychiatry consult Transaminitis, sent on admission and ongoing -- This is likely due to hypotension -- We will continue to monitor JUAN on CKD3 w/ Hypokalemia -- We will continue IV fluids and electrolyte replacement as needed Diffuse muscle aches --contributory low K, CPK unremarkable Ear ache x 1 year, better w/ pressure present at the time of admission. Improved -- Patient did not complain to me about it Questionable 20lb weight loss w/i this year but no change in clothes size -- She denies pending routine colonoscopy this year, prior hx polyps Chronic, present on admission: Chronic neck shoulder pains Pernicious anemia-check B12 level which is pending Diabetes mellitus, Hypertension dyslipidemia tremor vertigo, headache Glaucoma, Morbid Obesity, Renal insufficiency colon polyps, lower GI bleed Diet DM lantus DVT prophylaxis heparin Code full Disposition patient will likely be able to be discharged within the next 24-[address] Cardoso to follow in a.m. Pain Evaluation: Adequate Pain Control GI Prophylaxis: Proton Pump Inhibitor VTE Prophylaxis: Sub-Q Heparin (Unfractionated) VTE Mechanical Devices: Intermittant Pneumatic CD Resuscitation Status: CPR: Attempt Resuscitation Devyn De Souza MD Jun 01, 2016 00:18
[2016-06-01 04:33] VITALS: BP 178/75; PULSE 58; RESP 16; O2SAT 98
--- NOTE | 2016-06-01 05:31 | NUR ---
NOC shift note Patient had one dose of PRN Tylenol for left ear ache, otherwise denied pain. Two doses of Propanolol held r/t parameters of having heart rate less than 70. Used CPAP while sleeping. Two BM's with moderate amount of marty blood- patient reported that she has hemorrhoids and did not seem concerned, said that amount was less than usual. Bed alarm on for safety, call light within reach, and intentional rounding in place.
[2016-06-01 06:17] LABS: BASOPHILS % (AUTO) 0.3 % (0-3); EOSINOPHILS % (AUTO) 4.5 % (0-5); MONOCYTES % (AUTO) 7.7 % (4-12); Mean Corpuscular Hemoglobin 27.9 pg (27.0-35.0); Mean Corpuscular Volume 86.5 fL (81-100); NEUTROPHILS % (AUTO) 37.3 % (40-74); Platelet Count 117 bil/L (150-400)
[2016-06-01] MEDS: Potassium Chloride 20 mEq SR Tablet PO SCH (09:03)
[2016-06-01] MEDS: Pantoprazole 40 mg ER24 Tablet PO SCH (09:07)
[2016-06-01] MEDS: Heparin 5,000 Unit/mL Inj SUBQ SCH (09:08)
[2016-06-01] MEDS: Insulin GLARgine 100 Unit/mL Syringe SUBQ SCH (09:08)
[2016-06-01] MEDS: D5 0.45% NaCl + KCl 20 mEq/L 1,000 ML IV SCH (09:10)
[2016-06-01] MEDS ORDERED: AMLO10TA3 PO (10:38)
--- NOTE | 2016-06-01 11:44 | PCM.DIMED ---
Discharge Instructions Date of Service Jun 01, 2016 Dates of Hospitalization May 29, 2016 at 16:52 Discharge Diagnosis Discharge Diagnosis Acute kidney injury likely due to low blood pressure, likely related to medicines Medication Instructions Please take amlodipine 10 mg once a day, instead of 2.5mg daily, check your blood pressure at home, Please note that your blood pressure medicine including propranolol, doxazosin, chlorthalidone, hydralazine all stopped. Further adjustment of Blood pressure medicine will be done by your primary doctor. Diet Heart Healthy, Diabetic Activity No restrictions Patient Instructions You were hospitalized because of generalized weakness, decreased kidney function , very low blood pressure Please note that your blood pressure regimen has greatly changed, several medicines were stopped. Please follow medicine instruction as above Please recorded blood pressure at home to ensure response to this new regimen. You were asked to get help from your son to arrange your medicine appropriately Follow-up plan Please follow-up with your primary doctor in 2 weeks Follow-up Provider: Scooter Thacker MD Follow-up with PCP in: 2 weeks Bruce Cardoso MD Jun 01, 2016 11:44
--- NOTE | 2016-06-01 12:58 | NUR ---
Social Work - Discharge Data: Pt is on day 3 of hospitalization for Ryan, dehydration. EMR reviewed. Pt is medically cleared for discharge and is up and independent in room. SW met with pt at bedside to confirm discharge plan. Pt confirmed she will discharge home via in POV and has no additional discharge needs at this time. All updated and agreeable to plan. No further needs assessed Assessment: Pt who is independent at baseline Plan: Pt to discharge home via POV, no needs. AISSATOU Sommers
--- NOTE | 2016-06-01 13:09 | NUR ---
Discharge Patient discharge to home with all belonging at 1300. Explained to patient new medication (Norvasc), when next medications are due, and discharge instructions. Patient verbalized understanding. Dc'd IV intact. Vitals stable. Patient left floor via wheelchair accompanied by CUSHION INSTALLER and son with no signs of distress.
[2016-06-01 14:13] LABS: Vitamin D, 25-Hydroxy 27.7 ng/mL (30.0-100.0)
[2016-06-02 07:15] LABS: Vitamin B12 >1999 pg/mL (211-946)
--- NOTE | 2016-06-02 14:46 | PCM.DC.MED ---
Discharge Summary Date of Service Jun 01, 2016 Dates of Hospitalization Date of Hospital Admission May 29, 2016 at 16:52 Date of Discharge: Jun 01, 2016 Providers: Admitting Physician: Kishore Kearney MD Primary Care Physician: Samantha Henderson Attending Physician: Kishore Kearney MD Diagnosis at Time of Discharge Diagnosis at Time of Discharge Acute kidney injury, prerenal, hypotension, likely due to polypharmacy chronic problems Depression mild chronic transaminitis CKD3 Chronic neck shoulder pains Pernicious anemia-check B12 level which is pending Diabetes mellitus, Hypertension dyslipidemia tremor vertigo, headache Glaucoma, Morbid Obesity, Renal insufficiency colon polyps, lower GI bleed Procedures XRay, CTs & MRIs PROCEDURE: X-RAY CHEST ONE VIEW, PORTABLE ([id number]) INDICATIONS: fatigue TECHNIQUE: One view of the chest was acquired. COMPARISON: [facility], CR, XR CHEST 2VW, 11/27/2015, 12:49. FINDINGS: Surgical changes and devices: None. Lungs and pleura: No pleural effusions or pneumothorax. Lungs are clear. Mediastinum: Mediastinal contours appear normal. Heart size is normal. Bones and chest wall: No suspicious bony lesions. Overlying soft tissues appear unremarkable. IMPRESSION: No acute cardiopulmonary disease. Dictated by: Segundo Ching M.D. on 05/29/2016 at 20:52 Approved by: Segundo Ching M.D. on 05/29/2016 at 20:56 Cardiac Echo Impression Echocardiogram Report Name: ALVARADO HOANG Study Date: 05/30/2016 Height: 63 in Hospital Exam Location: [facility] Weight: 230 lb Gender: Female BSA: 2.1 m2 : 1940 Age: 75 yrs BP: 125/67 mmHg Reason For Study: SYNCOPE Ordering Physician: HOSPITALIST [facility] Performed By: Anne Vidales Referring Physician: Samantha Henderson Interpretation Summary Left ventricular systolic function is normal without focal wall motion abnormalities with the ejection fraction visually estimated to be 55-60% and appears slightly less vigorous compared to the previous study. Left ventricular wall thickness is borderline increased with a probable relaxation abnormality of the left ventricle, consistent with normal filling pressures which is unchanged compared to the previous study. The right ventricle is normal in size and function and appears unchanged compared to the previous study. The right ventricular systolic pressure is estimated at 26 mmHg assuming a right atrial pressure of 3 mm Hg, and is significantly lower compared to the previous study. The left atrium is mildly dilated and the right atrium is borderline dilated. Both atria have mildly increased in size since the prior echo exam. There is mild-moderate mitral regurgitation that is unchanged compared to the previous study. There is no other significant valvular heart disease. The patient was in sinus bradycardia with heart rates between 50-60 bpm during the exam which is slightly slower compared to the previous study. Brief History HPI obtained by on 05/29 cc: low BP HISTORY was OBTAINED FROM PATIENT / [facility] NOTES History of present illness 75-year-old female, noted to have low blood pressures at primary care office 58/ 40, noted to have low blood pressures at urgent care 98/48 then finally sent to the emergency department after 1L NS. She had been receiving vitamin B12 injections at primary care office. Family indicates that she has been depressed for at least 2 months and staying in her room. In the ER she has been crying throughout. she indicated possibly lightheadness today. No abdominal pains diarrhea no shortness of breath. patient indicates tolerating diet, no vomiting. poor appetite. She feels sad when crying, crying is not involuntary motor reaction. new diffuse upper extremity weakness. no changes in medications. wt loss 20lb within this year. In the ER heart rate 53, 114/53 mm, normal saline and potassium chloride 40 last hospitalized 1 year ago. Review of Systems - none of the following - F/C/sick contact / [facility] / sob / cough / cp / acid reflux / n/v/diarrhea / bleeding/bruising / leg swelling / change in voiding / yeast infections / rash ambulates neck pain is chronic left ear ache feels better w/ pressure FAMILY HX sister colon cancer SOCIAL HX never smoker no MEDICATIONS Scheduled Amlodipine (Amlodipine) 5 Mg Tablet 5 MG PO DAILY Ascorbate Calcium (Vitamin C) 500 Mg Tablet 500 MG PO QPM Aspirin (Aspirin) 81 Mg Tablet 81 MG PO DAILY Cholecalciferol (Vitamin D3) (Vitamin D3) 1,000 Unit Tab.chew 2,000 UNIT PO DAILY Cyanocobalamin (Cyanocobalamin Injection) 1,000 Mcg/1 Ml Vial 1,000 MCG IM Monthly Doxazosin Mesylate (Doxazosin Mesylate) 8 Mg Tablet 8 MG PO BID Gabapentin (Neurontin) 300 Mg Capsule 300 MG PO BID Hydralazine (Hydralazine) 50 Mg Tablet 50 MG PO BID Hydralazine (Hydralazine) 50 Mg Tablet 100 MG PO BID Hydrochlorothiazide (Hydrochlorothiazide) 25 Mg Tablet 25 MG PO DAILY Insulin Glargine (Lantus U100 Solostar Insulin Pen) 100 Unit/1 Ml Insuln.pen 40 UNITS SUBQ HS Latanoprost (Latanoprost) 2.5 Ml Drops 1 GTT BOTH_EYES HS Prednisone (Deltasone) 20 Mg Tablet 20 MG PO HS Prednisone (PredniSONE) 10 Mg Tablet 10 MG PO DAILY Prednisone (PredniSONE) 5 Mg Tab 5 MG PO DAILY Primidone (Primidone) 50 Mg Tablet 200 MG PO BID Propranolol ER (Propranolol ER) 120 Mg Cap.sa.24h 240 MG PO DAILY Telmisartan (Micardis) 80 Mg Tablet 80 MG PO DAILY Scheduled PRN Hydroxyzine Pamoate (HydrOXYzine Pamoate) 25 Mg Capsule 25-50 MG PO QID PRN PRN For Nausea oxyCODONE (oxyCODONE) 5 Mg Tablet 5 MG PO Q4H PRN PRN For Pain Past Medical/Surgical HX Chronic neck shoulder pains Pernicious anemia Diabetes mellitus, Hypertension dyslipidemia cataracts, tremor, vertigo, headache Glaucoma, Kidney disease, Morbid Obesity, Renal insufficiency Hemorrhoids, colon polyps, lower GI bleed C. difficile 2015 Past Surgical History Right knee arthroplasty 11/25/2015 Left rotator cuff repair Right ankle surgery Cholecystectomy Total hysterectomy 30 years ago. Colonoscopy Hospital Course The patient is a 75 year old female with history of hypertension, diabetes mellitus, renal insufficiency, who was sent to the emergency department from urgent care. She went to have a B12 shot this morning and her blood pressure was found to be low. The patient was sent to urgent care, her blood pressure had improved but was very tearful and upset so she was subsequently sent here. She presents to the emergency department tearful and complaining of generally not feeling well. She complains of chronic neck, arm and shoulder pain. The patient has been crying more over the last month. Her family states that she is feeling hopeless and depressed. The patient dealt with depression many years ago. She has been sleeping well. She denies abdominal pain, vomiting, diarrhea, dysuria, urinary frequency/urgency changes, chest pain or shortness of breath. patient admitted with mainly JUAN on CKD3 with electrolytes imbalance, which was thought to be from her polypharmacy for her blood pressure, especially thiazide diuretics: Chlorthalidone, and pt was also on hydralazine, doxazosin amlodipine , propanolol. Given no clear indiction for BB, hydrazine, HCTZ, persistent low BP with bradycardia, regimen changed to amlodipine 10mg qd. Patient was explicitly explained about changes of her medicine, asked her Son to assist to be compliant to new regimen, asked to follow up by in the clinic in one week. JUAN resolved upon d/c, likely due to dehydration with diuretics. chronic problems, stable throughout hospitalization Depression mild chronic transaminitis CKD3 Chronic neck shoulder pains Pernicious anemia-check B12 level which is pending Diabetes mellitus, Hypertension dyslipidemia tremor vertigo, headache Glaucoma, Morbid Obesity, Renal insufficiency colon polyps, lower GI bleed Exam Vital Signs (Last) Date Time Temp Pulse Resp B/P Pulse Ox O2 Delivery O2 Flow Rate FiO2 06/01/16 15:44 Room Air 06/01/16 04:33 36.8 58 16 178/75 98 Exam NAD, comfortably laying down on the bed no JVD, MMM, no LAD RRR, nl s1, s2 no mrg CTAB, no w,c S,ND,NT,normoactive BS+ warm, no edema, pulses 2/2 Test 05/29/16 16:25 05/29/16 20:30 05/30/16 06:15 05/31/16 07:23 Urine Color Yellow (YELLOW) Urine Appearance Clear (CLEAR,HAZY) Urine pH 6.0 (5.0-8.0) Urine Specific [place] <1.005 (1.003-1.035) Urine Protein Negativemg/dL (NEG,TRACE) Urine Glucose (UA) Negativemg/dL (NEGATIVE) Urine Ketones Negativemg/dL (NEGATIVE) Urine Occult Blood Negative (NEGATIVE) Urine Nitrite Negative (NEGATIVE) Urine Bilirubin Negative (NEGATIVE) Urine Urobilinogen Normalmg/dL (NORMAL) Urine Leukocyte Esterase Small (NEGATIVE) Urine RBC 0-2/hpf (0-2) Urine WBC 6-10/hpf (0-5) Urine Epithelial Cells Moderate/hpf (NONE-MOD) Urine Crystals None seen (NONE SEEN) Urine Bacteria Moderate/hpf (NONE-FEW) Urine Hyaline Casts 5/20/lpf (NONE) Urine Granular Casts None seen (NONE SEEN) Urine Waxy Casts None seen (NONE SEEN) Urine Red Blood Cell Casts None seen (NONE SEEN) Urine White Blood Cell Casts None seen (NONE SEEN) Urine Mucus None seen (None Seen) Urine Trichomonas None seen (NONE SEEN) Urine Yeast None (NONE SEEN) Urinalysis Comment None Urine Culture Reflexed Indicated Total Creatine Kinase 67U/L (21-215) Troponin T 0.010ug/L (0.0-0.011) Vitamin B12 Level >1999pg/mL (211-946) Vitamin D 25-Hydroxy 27.7ng/mL (30.0-100.0) Thyroid Stimulating Hormone (TSH) 1.350uIU/mL (0.450-4.500) Free Thyroxine Index 2.3 (1.2-4.9) Thyroxine (T4) 7.3ug/dL (4.5-12.0) Triiodothyronine (T3) Uptake 32% (24-39) Cortisol 11.9ug/dL (.) Phosphorus Level 2.8mg/dL (2.5-4.9) Magnesium Level 1.7mg/dL (1.6-2.6) Pro-B-Type Natriuretic Peptide 255.7pg/mL (0-738) Test 06/01/16 05:55 White Blood Count 3.1th/mm3 (3.8-10.1) Red Blood Count 3.40mil/mm3 (3.90-5.20) Hemoglobin 9.5g/dL (12.0-15.6) Hematocrit 29.4% (35.0-46.0) Mean Corpuscular Volume 86.5fL (81-100) Mean Corpuscular Hemoglobin 27.9pg (27.0-35.0) Mean Corpuscular Hemoglobin Concent 32.3% (32.0-37.0) Red Cell Distribution Width 15.0% (12.3-15.4) Platelet Count 117bil/L (150-400) Neutrophils (%) (Auto) 37.3% (40-74) Lymphocytes (%) (Auto) 50.2% (14-46) Monocytes (%) (Auto) 7.7% (4-12) Eosinophils (%) (Auto) 4.5% (0-5) Basophils (%) (Auto) 0.3% (0-3) Sodium Level 141mEq/L (134-144) Potassium Level 4.0mEq/L (3.5-5.2) Chloride Level 105mEq/L (97-108) Carbon Dioxide Level 22mmol/L (18-29) Blood Urea Nitrogen 19mg/dL (8-27) Creatinine 0.80mg/dL (0.57-1.00) Estimat Glomerular Filtration Rate 100mL/min (>59) Glucose Level 127mg/dL (60-99) Calcium Level 9.3mg/dL (8.5-10.1) Total Bilirubin 0.2mg/dL (0.0-1.2) Aspartate Amino Transf (AST/SGOT) 47U/L (0-50) Alanine Aminotransferase (ALT/SGPT) 53U/L (0-32) Alkaline Phosphatase 202U/L (25-165) Total Protein 5.6g/dL (6.4-8.4) Albumin 3.3g/dL (3.4-5.0) Microbiology Results Name: ALVARADO HOANG Age/Sex: 75/F Attend Dr: Jackie Kearney MD Acct: [id number] Unit: [id number] Status: ADM [place] [facility] [place]24-1 Re05/29/16 Disch: Specimen: [id number] Collected: 05/29/16 Status: COMP Req#: [id number] Received: 05/29/16 Source: URINE CC Sp Desc : STEPHEN Zaidi Dr: Van Phan DO Ordered: URINE CULT Procedure Result Verified Site Microbiology SVETLANA CULT URINE Final 05/30/16 Organism 1 MIXED UROGENITAL KENIA U COLONY COUNT/QUANTITY 25-50,000 CFU/ml Discharge Medications Discharge Medications Amlodipine (Amlodipine) 10 Mg Tablet 10 MG PO DAILY Prescribed by: BRUCE VOGEL MD Antiox#10/Om3/Dha/Epa/Lut/Zeax (I-Caps with Lutein-[place] 3 Sfg) 1 Each Capsule 1 EACH PO DAILY (Reported) Aspirin (Aspirin) 81 Mg Tablet 81 MG PO DAILY (Reported) Cholecalciferol (Vitamin D3) (Vitamin D3) 1,000 Unit Tab.chew 2,000 UNIT PO DAILY (Reported) Cranberry Fruit (Cranberry) 400 Mg Tablet 400 MG PO DAILY (Reported) Cyanocobalamin (Cyanocobalamin Injection) 1,000 Mcg/1 Ml Vial 1,000 MCG IM Monthly (Reported) Insulin Glargine (Lantus U100 Solostar Insulin Pen) 100 Unit/1 Ml Insuln.pen 40 UNITS SUBQ HS (Reported) Latanoprost (Latanoprost) 2.5 Ml Drops 1 GTT BOTH_EYES HS (Reported) Primidone (Primidone) 250 Mg Tablet 250 MG PO BID (Reported) Telmisartan (Micardis) 80 Mg Tablet 80 MG PO DAILY (Reported) Additional med instructions Please take amlodipine 10 mg once a day, instead of 2.5mg daily, check your blood pressure at home, Please note that your blood pressure medicine including propranolol, doxazosin, chlorthalidone, hydralazine all stopped. Further adjustment of Blood pressure medicine will be done by your primary doctor. Followup Plan Disposition: home Follow-up plan Please follow-up with your primary doctor in 2 weeks Discharge Diet: Heart Healthy, Diabetic Discharge Activity: No restrictions Patient Instructions You were hospitalized because of generalized weakness, decreased kidney function , very low blood pressure Please note that your blood pressure regimen has greatly changed, several medicines were stopped. Please follow medicine instruction as above Please recorded blood pressure at home to ensure response to this new regimen. You were asked to get help from your son to arrange your medicine appropriately Follow-up Provider: Scooter Thacker MD Follow-up with PCP in: 2 weeks Time spent 65min Bruce Vogel MD Jun 02, 2016 14:46
[2016-07-10] MEDS ORDERED: DOXA8TAB73 PO (08:48)
[2016-07-10] MEDS ORDERED: ASPI-973 PO (08:48)
[2016-07-10] MEDS ORDERED: PROP120C2 PO (08:48)
[2016-07-10] MEDS ORDERED: HYDR-3940 PO (08:48)
[2016-07-10] MEDS ORDERED: AMLO2.5T PO (08:48)
[2016-07-10] MEDS ORDERED: FURO40TA4 PO (08:48)
[2016-07-10] MEDS ORDERED: HYG25 PO (08:48)
[2016-07-10] MEDS ORDERED: ANTI1CAP2 PO (08:48)
== END 2016-06-01 13:00 | disposition home or self-care (01) | DRG 683 ==
LOC: SED 13:10 → MPC 16:52 → OBSVTOIN 16:52
PROVIDERS: ADMIT Urology; ATTEND Urology
DX: N17.9 Acute kidney failure, unspecified (principal); N39.0 Urinary tract infection, site not specified; E86.0 Dehydration; E11.9 Type 2 diabetes mellitus without complications; E87.6 Hypokalemia; E83.52 Hypercalcemia; I12.9 Hypertensive chronic kidney disease with stage 1 through stage 4 chronic kidney disease, or unspecified chronic kidney disease; N18.3 Chronic kidney disease, stage 3 (moderate); D51.0 Vitamin B12 deficiency anemia due to intrinsic factor deficiency; G89.29 Other chronic pain; H40.9 Unspecified glaucoma; Z79.82 Long term (current) use of aspirin

== ENCOUNTER 2016-07-14 07:05 | Day surgery (SDC) | payer MEDICARE, OTHER ==
[~2016-07-14] VITALS: Ht 160 cm; Wt 104.3 kg
--- NOTE | 2016-07-14 07:03 | PCM.HPANE ---
Patient Data Surgeon Admitting Provider: Attending Provider:Nicolás Cai MD Primary Care Physician:Scooter Thacker MD Other Provider:[facility] Reason for Visit Positive Occult Stool Blood Test Ht/WT & BMI Body Mass Index Allergies Coded Allergies: amoxicillin (Verified Allergy, Severe, Hives,HEADACHE, 07/10/16) citalopram (Verified Allergy, Severe, Hallucinations, 07/10/16) nifedipine (Verified Allergy, Severe, rash, 07/10/16) lisinopril (Verified Adverse Reaction, Severe, cough, 07/10/16) pioglitazone (Verified Adverse Reaction, Severe, leg swelling,WEIGHT GAIN , 07/10/16) pravastatin (Verified Adverse Reaction, Severe, myalgias, 07/10/16) saxagliptin (Verified Adverse Reaction, Severe, Headache, 07/10/16) simvastatin (Verified Adverse Reaction, Severe, weakness, 07/10/16) Past Anesthesia History Anesthesia History: Denies:: Abnormal Airway, Anesthesia Reactions, Difficult Intubation, Fam Anesthesia Reaction, Fam Malignant Hypertherm, Malignant Hyperthermia Diabetes History Hx Diabetes?: Yes Type of Diabetes: Type II Glycemic Control: Insulin Dependent MRSA MRSA: No Medications Blood Thinner: Aspirin Reported Medications Antiox#10/Om3/Dha/Epa/Lut/Zeax (I-Caps with Lutein-[place] 3 Sfg)1 Each Capsule1 Each PO DAILY 07/10/16 Hydralazine 50 Mg Yyuofe80 Mg PO BID Ref 0 07/10/16 Furosemide 40 Mg Lewlav45 Mg PO DAILY 07/10/16 Aspirin 81 Mg Oipokz01 Mg PO DAILY Ref 0 07/10/16 Doxazosin Mesylate 8 Mg Tablet8 Mg PO BID #30 TABLET Ref 0 07/10/16 Amlodipine 2.5 Mg Tablet2.5 Mg PO DAILY Ref 0 07/10/16 Primidone 250 Mg Vfefag511 Mg PO BID 05/29/16 Cranberry Fruit (Cranberry)400 Mg Lwigtv312 Mg PO DAILY 05/29/16 Telmisartan (Micardis)80 Mg Aoafjs95 Mg PO DAILY 11/27/15 Insulin Glargine (Lantus U100 Solostar Insulin Pen)100 Unit/1 Ml Insuln.pen40 Units SUBQ HS 11/27/15 Cholecalciferol (Vitamin D3) (Vitamin D3)1,000 Unit Tab.chew2,000 Unit PO DAILY 04/30/15 Latanoprost 2.5 Ml Drops1 Gtt BOTH_EYES HS 04/30/15 Cyanocobalamin (Cyanocobalamin Injection)1,000 Mcg/1 Ml Vial1,000 Mcg IM Monthly 04/30/15 Discontinued Reported Medications Propranolol ER 120 Mg Cap.sa.39w466 Mg PO DAILY 07/10/16 Chlorthalidone 25 Mg Etzirk01 Mg PO DAILY #30 TABLET 07/10/16 Antiox#10/Om3/Dha/Epa/Lut/Zeax (I-Caps with Lutein-[place] 3 Sfg)1 Each Capsule1 Each PO DAILY 05/29/16 Aspirin 81 Mg Pptgie17 Mg PO DAILY 04/30/15 Discontinued Scripts Amlodipine 10 Mg Qzlnny10 Mg PO DAILY #30 TABLET Ref 0 Prov:Bruce Cardoso MD 06/01/16 History History of ENT Problems?: Yes HEENT History: Positive for:: Cataracts (S/P EXTRACTIONS/STENT) Denies:: Abnormal Airway Difficult Intubation Dysphagia Hearing Problem Sinus Problem Denture Type: None Teeth Condition: Within Normal Limits Hx of Heart Problems?: Yes Cardiovascular History: Positive for:: Hypertension (HYPERLIPIDEMIA) 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,MOD TR) Denies:: AICD Cardiac Surgery Chest Pain Congestive Heart Failure Heart Murmur (ECHO 07/2015 EF 65-70%) Irregular Heartbeat Pacemaker Thrombophlebitis Hx of Respiratory Problem?: Yes Respiratory History: Positive for:: Dyspnea (with anxiety ) Use of C-PAP Machine (ALEXUS+ W/ CPAP SLEEP STUDY 04/2014) Denies:: Asthma COPD Chest Surgery Emphysema Hemoptysis Pneumonia Tuberculosis Hx Neurologic Problems?: Yes Neurological History: Positive for:: Dizziness (vertigo) Headaches (occasional) Parkinson's Disease ( TREMOR) Denies:: Alzheimer's Disease CVA Dementia Seizures Hx of GI Problems?: Yes Hx of Problems?: Yes Genitourinary History: Positive for:: Urinary Tract Infection Denies:: HX of Hemodialysis (STAGE III CHRONIC RENAL INSUFFIENCY) Kidney Stones HX of Peritoneal Dialysis: No Female Hx: Denies:: Currently Endometriosis Pelvic Inflammatory (s/p NAV) Problems with Breasts? Skin History: Positive for:: History Skin Disorders? (ACTINIC KERATOSES) Denies:: Pressure Ulcers Hx Musculoskeletal Problems?: Yes Musculoskeletal History: Positive for:: Degenerative Joint Joint Replacement (s/p rt.knee arthroplasty) Musculoskeletal Trauma (S/P LT ROTATOR CUFF RPR,ORIF RT ANKLE) Denies:: Back Injury (chronic back pain ) Hx of Psycho/Social Problems?: Yes Psycho Social History: Positive for:: Anxiety Denies:: Hx Depression Hx Surgeries?: Yes (T&A,CATARACTS/STENT,LT ROTATOR CUFF,ORIF RT ANKLE,HYST/BSO, JENNIFER) Hx Any Other Health Problems?: Yes Other History: Positive for:: Hospitalization (04/2015 C. DIFF) Denies:: Endocrine Disease Thyroid Disease History Blood Transfusions: Denies:: Blood Transfusions Hx Diabetes: Yes Hx Alcohol Use: NoHx Substance Use: No Smoking Status: Never Smoker Have You Smoked inLast 12 mo: No Stop/Bang Risk Assessment Category Category 1A: Patient has history of documented sleep apnea, and HAS NOT received any narcotic, sedative or anesthesia administration during this stay. Category 1B: Patient has history of documented sleep apnea, and HAS received any narcotic , sedative or anesthesia administration during this stay Category 2: Patient has SUSPECTED Obstructive Sleep Apnea, and HAS received any narcotic , sedative or anesthesia administration during this stay. Category 3: Patient has SUSPECTED Obstructive Sleep Apnea and HAS NOT received narcotic, sedative or anesthesia administration during this stay. Category 4: Outpatient in Procedural Areas with known sleep apnea or who screen positive for High Risk via the STOP/BANG questionnaire. Exam Exam General Appearance: Alert, Oriented X3, Cooperative, No Acute Distress HEENT/AIRWAY: MP 2 Lungs: Clear to Auscultation Heart: Exam Unremarkable Plan Impression Patient chart reviewed, patient interviewed and anesthestic plan with risks, benefits, and alternatives discussed, and informed consent obtained. ASA Physical Status: ASA3 Severe Disease Anesthetic Plan: GA Bene/Risks/Altern/Consents: Yes HP Complete Prior to Induction: Yes Curry Zaragoza MD July 14, 2016 07:03
[~2016-07-14 07:05] MED LIST changes: +AMLO2.5T PO; -AMLO5TAB2 PO; +ANTI1CAP2 PO; -ASCO-294 PO; +CRAN400T4 PO; +FURO40TA4 PO; -GABA300C PO; -HYDR-3797 PO; -HYDR25TA4 PO; +HYG25 PO; +Lactated Ringer's 1,000 ML IV ONE; -OXYC5TAB72 PO; -PRD5T PO; -PRE10 PO; -PRED-508 PO; +PRIM250T PO; -PRIM50TA PO
[2016-07-14] MEDS ORDERED: Propofol 10,000 mCg/mL 20 mL Inj ONE (07:06)
[2016-07-14 07:45] VITALS: BP 216/74; PULSE 58; RESP 17; O2SAT 100
[2016-07-14] MEDS ORDERED: Lactated Ringer's 1,000 ML IV SCH (08:12)
[2016-07-14] MEDS ORDERED: Ondansetron 2 mg/mL 2 mL Inj IVPUSH PRN (08:15)
[2016-07-14] MEDS ORDERED: MetoCLOpramide 5 mg/mL 2 mL Inj IVPUSH PRN (08:15)
[2016-07-14 08:53] VITALS: BP 146/61; PULSE 64; RESP 16; O2SAT 98
[2016-07-14 09:00] VITALS: BP 164/65; PULSE 59; RESP 16; O2SAT 100
[2016-07-14 09:06] VITALS: BP 191/77; PULSE 68; RESP 16; O2SAT 100
--- NOTE | 2016-07-14 09:40 | ENDO ---
[address] [address] ENDOSCOPY PROCEDURE PATIENT: ALVARADO HOANG : 1940 MR#: [id number] ADMIT: 07/14/2016 JOB ID: [id number] DATE: 07/14/2016 PRIMARY PROVIDER: Scooter Thacker MD PROCEDURE: Colonoscopy with hot snare polypectomy. INDICATIONS: A 76-year-old female with fecal occult blood positivity. She also sees red blood periodically and believes it is probably hemorrhoids. EQUIPMENT: PCF H 180 AL. SEDATION: Monitored anesthesia as provided by Dr. Mani Zaragoza. COMPLICATIONS: None identified. BOWEL PREPARATION: Suboptimal in many locations requiring copious amounts of irrigation and suction. PROCEDURAL INFORMATION: After the risks and benefits were explained, written and verbal informed consent was obtained. The patient was brought into the endoscopy suite and placed into the left lateral decubitus position. Sedation was achieved using the above-stated medications with the addition of oxygen via nasal cannula. A digital rectal examination disclosed grade 3 and grade 4 internal external nonbleeding, non-thrombosed hemorrhoids. The scope was introduced into the rectum and shortly after introduction of the endoscope, there was evidence of some red blood oozing from the hemorrhoidal cushions. The scope was advanced to the cecum as identified by the appendiceal orifice and ileocecal valve. The scope was slowly withdrawn to carefully examine the mucosa for any defects or lesions. Multiple direct views were made through the dentate line for exclusion of pathology. The colon was decompressed. The scope removed from the patient who tolerated the procedure well. FINDINGS: Around the splenic flexure, there was a small perhaps 5-6 mm polyp removed with hot snare. In around the hepatic flexure, there was a perhaps 1 cm to 14 mm pedunculated polyp removed with hot snare. After its removal, it had to be sectioned with the snare prior to aspiration through the accessory channel. Within the limitations of bowel prep, I did not see any other significant pathology throughout. ENDOSCOPIC DIAGNOSES: 1. Grade 3 and grade 4 hemorrhoids. 2. Colon polyps. RECOMMENDATIONS: 1. Await histopathology. 2. Repeat colonoscopy in the next 18 months considering polyps and prep. 3. Warm Epsom salt baths for the hemorrhoidal engorgement plus intermittent preparation H suppository and/or cooling gel would be appropriate. If red blood per hemorrhoids continues, then the patient will need to have a visit with one of our surgeons to discuss an operative intervention.
--- NOTE | 2016-07-14 13:26 | PCM.ANEP1 ---
Post Anesthesia PACU Phase 1 Assessment Vital Signs Vital Signs Date Time Temp Pulse Resp B/P Pulse Ox O2 Delivery O2 Flow Rate FiO2 07/14/16 09:06 68 16 191/77 100 Room Air 07/14/16 09:00 59 16 164/65 100 Room Air 07/14/16 08:53 37.0 64 16 146/61 98 Room Air 07/14/16 07:45 36.4 58 17 216/74 100 Room Air Anesthetic Administered: GA Level of Alertness: Awake, talking RUIZ's with Equal Strength: Yes Pain: No Nausea or Vomiting: No CV Function & Hydration Stable: Yes Airway Device: Oxygen Delivery: Room Air Lungs: Normal Air Movement PACU Phase 2 Assessment Complications: No Follow up Care: No Patient Instructions Provided: N/A Curry Zaragoza MD July 14, 2016 13:26
--- NOTE | 2016-07-15 16:11 | PATH ---
SURGICAL PATHOLOGY Attending Physician:Tammy Leon CASE STATUS: Signed Out PATIENT NAME: ALVARADO HOANG PID: [id number] : 1940 DATE COLLECTED:07/14/2016 16:28 SPECIMEN: Colon, Biopsy CLINICAL HISTORY: 1. COLON POLYPS FINAL DIAGNOSIS: Colon, Polyps, Biopsies: Multiple (approximately 10) portions of tubular adenoma; negative for high-grade dysplasia. ICD10: K63.5 GROSS DESCRIPTION: The specimen is received in one formalin filled container labeled with the patient's name, sublabeled "colon polyps" and consists of multiple portions of tissue which aggregate to 1.5 x 1.0 x 0.6 CM. The specimen is entirely submitted in one cassette. 07/14/2016 [facility] ICD-9 CODES: CPT CODES: 1: 14451 Electronically Signed Out Rachel Siegel MD [facility] Pathology [facility] [address], [place] [address] Technical component performed at [facility], [facility] [address], [place], [address]
== END 2016-07-14 23:59 | disposition home or self-care (01) ==
LOC: END 07:05
PROVIDERS: ATTEND Internal Medicine Gastroenterology
DX: D12.3 Benign neoplasm of transverse colon (principal); K64.2 Third degree hemorrhoids; K64.3 Fourth degree hemorrhoids; R19.5 Other fecal abnormalities; I51.9 Heart disease, unspecified; I12.9 Hypertensive chronic kidney disease with stage 1 through stage 4 chronic kidney disease, or unspecified chronic kidney disease; E11.22 Type 2 diabetes mellitus with diabetic chronic kidney disease; N18.3 Chronic kidney disease, stage 3 (moderate); G47.33 Obstructive sleep apnea (adult) (pediatric); E78.5 Hyperlipidemia, unspecified; E66.01 Morbid (severe) obesity due to excess calories; G20 Parkinson's disease; F41.9 Anxiety disorder, unspecified; K76.0 Fatty (change of) liver, not elsewhere classified; Z79.4 Long term (current) use of insulin; Z86.010 Personal history of colon polyps; Z68.41 Body mass index [BMI] 40.0-44.9, adult; Z79.82 Long term (current) use of aspirin; Z96.651 Presence of right artificial knee joint
CPT/HCPCS: 45385; J7120